=== PATIENT | male | born 1960 | race Caucasian/White ===

== ENCOUNTER 2016-07-04 16:46 | Emergency (ER) | payer OTHER ==
[2016-07-04] MEDS ORDERED: IBUPROFEN 800 MG TABLET ONE (17:22)
--- NOTE | 2016-07-04 17:40 | RAD ---
ANKLE-LEFT 3 VIEW History: Ankle pain after wrestling injury. Comparison: None. Findings: Views of the left ankle were obtained. Images demonstrate evidence of disruption of the posterior cortical margin of the distal tibia. Slight offset of the fracture fragments is visualized. There also appears to be an avulsion fracture evident involving the tip of the medial malleolus with slight asymmetric widening of the medial portion of the mortise joint. The talar dome contour is appropriate. Impression: 1. A mildly displaced posterior malleolar fracture. 2. A subtle avulsion fracture involving the tip of the medial malleolus with slight asymmetric widening of the medial portion of the mortise joint. 3. An anterior calcaneal enthesophyte. The findings were discussed with Dr. Tyler at 1736 hours.
== END 2016-07-04 17:39 | disposition home or self-care (01) ==
LOC: ED 16:46
DX: S82.832A Other fracture of upper and lower end of left fibula, initial encounter for closed fracture (principal); Y93.72 Activity, wrestling; Y92.219 Unspecified school as the place of occurrence of the external cause
CPT/HCPCS: 73610; 99283 ×2; 29515; A9270